=== PATIENT | female | born 1945 | race Caucasian/White ===

== ENCOUNTER → 2017-01-17 | Outpatient (CLI) | payer BC ==
[~2017-01-17] MED LIST: ACET-1256 PO; B-COTAB18 PO; BOSW1TAB3 PO; CHOL2000 PO; FOLI1TAB7 PO; HOME1MIS2 SL; IBUP-103 PO; INDO-22 PO; LEVO500T78 PO; PHEN-582 PO; PHENPAK2 PO; PRAMCRE2 TOP; SENNTAB23 PO; THYROID SUPPORT PO; TURM1CAP4 PO; [UNRECOGNIZED DRUG - OTHER] PO
== END | disposition home or self-care (01) ==
LOC: C.LAB1850 10:34
PROVIDERS: ATTEND Registered Nurse
DX: R10.9 Unspecified abdominal pain (principal)

== ENCOUNTER 2017-02-05 15:24 | Emergency (ER) | payer BC ==
[~2017-02-05] VITALS: Ht 165.1 cm; Wt 74.3 kg
[2017-02-05 15:37] VITALS: TEMP 36.5; Ht 165.1 cm; Wt 74.3 kg
[2017-02-05 16:47] VITALS: O2SAT 97
--- NOTE | 2017-02-05 17:24 | DIAGNOSTIC IMAGING REPORT ---
CT HEAD WITHOUT CONTRAST (CT) CLINICAL HISTORY: Headache status post head trauma COMPARISON STUDY: No previous studies for comparison. TECHNIQUE: Axial CT of the brain is performed from the vertex to the skull base. IV contrast was not administered for this examination. CT DOSE: 537.48 mGy.cm FINDINGS: No intra or extra-axial mass lesions are visualized. There is no CT evidence of acute cortical infarction. There is no evidence of midline shift. There is no acute hemorrhage. No calvarial fractures are visualized. There are patchy white matter hypodensities likely on a small vessel basis. There is no evidence of pathologic ventricular dilatation. There is no evidence of acute sinusitis IMPRESSION: No acute intracranial findings Electronically signed by: Alex Alegre M.D. 02/05/2017 5:23 PM Dictated Date/Time: 02/05/2017 5:22 PM
--- NOTE | 2017-02-05 17:42 | EMERGENCY ROOM VISIT NOTE ---
History First contact with patient: 16:47 Chief Complaint: NEURO SYMPTOMS Stated Complaint: HAD BUMP ON HEAD, SPEECH,MEMORY HAS GOTTEN WORSE Nursing Triage Summary: Patient states she is to have a colonoscopy and they want her checked before she has it done because 3 weeks ago she was pushing a treadmill up to clean under and it came back down knocking her into the wall. Pt states she hit her head, denies LOC. Had some dizziness, nausea and slurred speech off an on for a couple days after and now feels that maybe her memory is not as good as it was prior to hitting her head. Pt denies head pain today. Chronic sciatica right side. History of Present Illness The patient is a 71 year old female who presents to the Emergency Room with Hx of Head injury 3 weeks ago. Patient reports that 3 weeks ago she was lifting a treadmill at her home for cleaning purposes. Due to the heaviness of the equipment, her arms gave way, the she was knocked in to the wall hitting the side of her head. She does no recall which side. She denies other injuries. She denied any preceding dizziness or lightheadedness. She denies LOC following injury, visual changes. She does report a period of nausea following incident without vomiting in addition to frontal Headaches daily for week after the incident and occasional slurred speech and poor memory recall. Symptoms have generally improved, however, she does report headache 1/wk. She currently denies numbness, weakness, tingling, CP, Palpitation, SOB. The main reason patient has come into hospital is because she is being scheduled for a Colonoscopy and was told prior to receiving anesthesia, she should be evaluated. Review of Systems Pt denies headache, change in vision, fevers, chest pain, shortness of breath, nausea, vomiting, diarrhea, pain with urination, and melena. Social History Smoking Status: Former Smoker Current/Historical Medications Scheduled B-Complex Vitamins (Vitamin B Complex), 1 TAB PO QAM Ouchykjfa-Hudfzusqgwl-Jxlmibq (Glucosamine Complex), 1 TAB PO QAM Cholecalciferol (Vitamin D3), 1 CAP PO QAM Ntjimcyrocdhn-Tm-Jl W/ Apap (Tylenol Cold & Flu Severe), 2 TAB PO DAILY Turmeric (Curcuma Longa) (Turmeric), 1 CAP PO QAM [Thyroid Support], 1 TAB PO QAM Scheduled PRN Acetaminophen (Tylenol), 1,000 MG PO Q8H PRN for Pain Homeopathic Products (Oscillococcinum), 1 DOSE SL DAILY PRN for COLD SYMPTOMS Ibuprofen Tab (Advil), 400-600 MG PO Q6H PRN for Pain Vzivtvkwc-Ccfdkkoxwxgjo-Nmncux (Preparation H), 1 DOSE TOP BID PRN for HEMORRHOIDS Allergies Coded Allergies: No Known Allergies (Unverified , 02/05/17) Physical Exam Vital Signs Date Time Temp Pulse Resp B/P Pulse Ox O2 Delivery O2 Flow Rate FiO2 02/05/17 16:47 97 Room Air 02/05/17 16:45 58 19 132/56 95 Room Air 02/05/17 15:37 36.5 63 16 147/66 99 Room Air Physical Exam GENERAL: alert, well appearing, well nourished, no distress, non-toxic EYE EXAM: normal conjunctiva, PERRL and EOM's grossly intact OROPHARYNX: no exudate, no erythema, lips, buccal mucosa, and tongue normal and mucous membranes are moist NECK: supple, no nuchal rigidity, no adenopathy, non-tender LUNGS: Clear to auscultation. Normal chest wall mechanics HEART: no murmurs, S1 normal and S2 normal ABDOMEN: abdomen soft, non-tender, normo-active bowel sounds, no masses, no rebound or guarding. SKIN: no rashes and no bruising UPPER EXTREMITIES: upper extremities are grossly normal. LOWER EXTREMITIES: No pitting edema. NEURO EXAM: Normal sensorium, cranial nerves II-XII intact, normal speech, no weakness of arms, no weakness of legs. No drift. Gross sensation intact. Medical Decision & Procedures ER Provider Diagnostic Interpretation: CT HEAD WITHOUT CONTRAST (CT) CLINICAL HISTORY: Headache status post head trauma COMPARISON STUDY: No previous studies for comparison. TECHNIQUE: Axial CT of the brain is performed from the vertex to the skull base. IV contrast was not administered for this examination. CT DOSE: 537.48 mGy.cm FINDINGS: No intra or extra-axial mass lesions are visualized. There is no CT evidence of acute cortical infarction. There is no evidence of midline shift. There is no acute hemorrhage. No calvarial fractures are visualized. There are patchy white matter hypodensities likely on a small vessel basis. There is no evidence of pathologic ventricular dilatation. There is no evidence of acute sinusitis IMPRESSION: No acute intracranial findings Medical Decision 71 yo F w/ hx of head injury 3 wks ago with subsequent frontal headaches daily x 1 week, now headache 1/wk, occasionally poor memory recall, slurred speech requesting evaluation prior to upcoming colonoscopy. VSS, No focal neurological signs. Differential Diagnosis includes but is not limited to headache, tension headache , cluster headache, migraine, subarachnoid hemorrhage, meningitis, mass, central venous thrombus, concussion, trauma and epidural/subdural hemorrhage. -CT Head without contrast: no acute intracranial findings. -She was discharged with follow up to PCP Impression Primary Impression: History of head injury Additional Impression: Head ache Departure Information Dispostion Home / Self-Care Condition GOOD Referrals Pro,Chau Izquierdo M.D. (PCP) Patient Instructions My [facility] Resident Tracking Resident Involvement: Resident Care Provided Care Provided: Adult ED Problem Qualifiers Additional Impression: Head ache Headache type: unspecified Headache chronicity pattern: episodic headache Intractability: not intractable Qualified Codes: R51 - Headache
--- NOTE | 2017-02-05 17:43 | EMERGENCY ROOM VISIT NOTE ---
History Report prepared by Jaydenibe: Twyla Mixon Under the Supervision of: Dr. Thanh Hernandez D.O. First contact with patient: 16:47 Chief Complaint: NEURO SYMPTOMS Stated Complaint: HAD BUMP ON HEAD, SPEECH,MEMORY HAS GOTTEN WORSE Nursing Triage Summary: Patient states she is to have a colonoscopy and they want her checked before she has it done because 3 weeks ago she was pushing a treadmill up to clean under and it came back down knocking her into the wall. Pt states she hit her head, denies LOC. Had some dizziness, nausea and slurred speech off an on for a couple days after and now feels that maybe her memory is not as good as it was prior to hitting her head. Pt denies head pain today. Chronic sciatica right side. History of Present Illness The patient is a 71 year old female who presents to the Emergency Room with complaints of possible neurologic symptoms. She reports she experienced a head injury that occurred approximately 3 weeks ago. She states she was pushing a treadmill up in order to clean under it, when it came back down and hit her in the head. She denies any LOC. She reports she experienced some dizziness, nausea and slurred speech off and on for a couple of days after the incident. She now feels that her memory may not be as good as it was before hitting her head. The patient notes she is scheduled to undergo a colonoscopy soon, and was told to get "checked out" before the scope. She denies any headache currently here in the ED. 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 A total of 10 systems reviewed and were otherwise negative. Past Medical & Surgical Medical Problems: (1) Sciatica Social History Smoking Status: Former Smoker Alcohol Use: occasionally Drug Use: none Marital Status: Housing Status: lives with family Occupation Status: retired Current/Historical Medications Scheduled B-Complex Vitamins (Vitamin B Complex), 1 TAB PO QAM Teorismky-Ohczmqhuikb-Clusgkk (Glucosamine Complex), 1 TAB PO QAM Cholecalciferol (Vitamin D3), 1 CAP PO QAM Osryoxlnampia-Bt-Qb W/ Apap (Tylenol Cold & Flu Severe), 2 TAB PO DAILY Turmeric (Curcuma Longa) (Turmeric), 1 CAP PO QAM [Thyroid Support], 1 TAB PO QAM Scheduled PRN Acetaminophen (Tylenol), 1,000 MG PO Q8H PRN for Pain Homeopathic Products (Oscillococcinum), 1 DOSE SL DAILY PRN for COLD SYMPTOMS Ibuprofen Tab (Advil), 400-600 MG PO Q6H PRN for Pain Zhdirmzth-Sqishqpeomwff-Zcagsq (Preparation H), 1 DOSE TOP BID PRN for HEMORRHOIDS Allergies Coded Allergies: No Known Allergies (Unverified , 02/05/17) Physical Exam Vital Signs Date Time Temp Pulse Resp B/P Pulse Ox O2 Delivery O2 Flow Rate FiO2 02/05/17 16:47 97 Room Air 02/05/17 16:45 58 19 132/56 95 Room Air 02/05/17 16:45 57 02/05/17 15:37 36.5 63 16 147/66 99 Room Air Physical Exam CONSTITUTIONAL/VITAL SIGNS: Reviewed / noted above. GENERAL: Non-toxic in appearance. INTEGUMENTARY: Warm, dry, and [place]. HEAD: Normocephalic. EYES: without scleral icterus or trauma. ENT/OROPHARYNX: clear and moist. LYMPHADENOPATHY/NECK: Is supple without lymphadenopathy or meningismus. RESPIRATORY: Lungs clear and equal. CARDIOVASCULAR: Regular rate and rhythm. GI/ABDOMEN: Soft and nontender. No organomegaly or pulsatile mass. No rebound or guarding. Normal bowel sounds. EXTREMITIES: Warm and well perfused. BACK: No CVA tenderness. NEUROLOGICAL: Intact without focal deficits. PSYCHIATRIC: normal affect. MUSCULOSKELETAL: Normally developed with good muscle tone. TRIAGE NURSING DOCUMENTATION REVIEWED. Medical Decision & Procedures ER Provider Diagnostic Interpretation: This CT scan was reviewed and interpreted by the radiologist and reviewed by myself. CT HEAD WITHOUT CONTRAST (CT) IMPRESSION: No acute intracranial findings Electronically signed by: Alex Alegre M.D. 02/05/2017 5:23 PM ED Course 1715: Previous medical records were reviewed. The patient was evaluated in room C8. A complete history and physical examination was performed. 1745: I reevaluated the patient. She is feeling well. I discussed her results and discharge instructions and she verbalized complete understanding and agreement. Medical Decision Differential includes acute coronary syndrome, myocardial infarction, CVA, TIA, anemia, infection, pneumonia, UTI, pyelonephritis, poor nutrition, dehydration, electrolyte disturbance,hypoglycemia. This is a 71-year-old female who was seen with the resident. The patient presents with concerns about a head injury after bumping her head several weeks ago. She mainly was concerned about intracranial bleeding. She denies any other significant symptoms. She has not had nausea vomiting. Denies any weakness in arm or leg. A CT scan of the brain was negative for intracranial bleeding. She was told the results of the test. The patient was felt to be stable for outpatient follow-up and discharge. Impression Primary Impression: History of head injury Additional Impression: Head injury Scribe Attestation The scribe's documentation has been prepared under my direction and personally reviewed by me in its entirety. I confirm that the note above accurately reflects all work, treatment, procedures, and medical decision making performed by me. Departure Information Dispostion Home / Self-Care Referrals Chau Rosen M.D. (PCP) Patient Instructions My [facility] Problem Qualifiers
[2017-02-05 17:53] VITALS: BP 130/62; PULSE 56; O2SAT 98
== END 2017-02-05 17:55 | disposition home or self-care (01) ==
LOC: C.EDB 15:25 → C.EDC 17:55
DX: S09.90XA Unspecified injury of head, initial encounter (principal); W22.8XXA Striking against or struck by other objects, initial encounter; Z87.891 Personal history of nicotine dependence; Z79.899 Other long term (current) drug therapy

== ENCOUNTER → 2017-02-19 | Day surgery (SDC) | payer BC ==
[2017-02-05 13:58] VITALS: Ht 165.1 cm; Wt 72.7 kg
[~2017-02-19] VITALS: Ht 165.1 cm; Wt 72.7 kg
[~2017-02-19] MED LIST changes: -FOLI1TAB7 PO; -INDO-22 PO; -LEVO500T78 PO; +LIDOCAINE HCL 2% 2 ML VIAL (20MG/ML) ONE; -PHENPAK2 PO; +PROPOFOL IV EMULSION 10 MG/ML 20 ML VIAL IV ONE; -SENNTAB23 PO; +SODIUM CHLORIDE 0.9% 500ML 500 ML IV ONE; -[UNRECOGNIZED DRUG - OTHER] PO
--- NOTE | 2017-02-19 15:41 | Endo History and Physical ---
History & Physical Date of Service: Feb 19, 2017. Chief Complaint: rectal bleeding Referring Physician: Dr. Chau Rosen History of Present Illness 71 yo female who presents for colonoscopy secondary to rectal bleeding. Past Surgical History Hx Cardiac Surgery: No Hx Internal Defibrillator: No Hx Pacemaker: No Hx Abdominal Surgery: Yes (APPY, LAP VILMA) Hx of Implantable Prosthesis: No Hx Post-Op Nausea and Vomiting: No Hx Cancer Surgery: No Hx Thoracic Surgery: No Hx Orthopedic: Yes (LT/RT CHARMAINE) Hx Urinary Tract Surgery: No Family History Polyp Social History Smoking Status: Former Smoker Hx Substance Use: No Hx Alcohol Use: No Allergies Coded Allergies: No Known Allergies (Verified , 02/19/17) Current Medications Reported Home Medications Medications Dose Route/Sig Max Daily Dose Days Date Category Preparation H (Hrfpfbnvv-Guyjmzfejoehj-Ffrgth) 1 Cre Cre 1 Dose TOP BID PRN 02/05/17 Reported Oscillococcinum (Homeopathic Products) 1 Mis Mis 1 Dose SL DAILY PRN 02/05/17 Reported Tylenol Cold & Flu Severe (Klrrnwypazwho-Lt-Pn W/ Apap) 1 Tab Tab 2 Tab PO DAILY 02/05/17 Reported [Thyroid Support] 1 Tab PO QAM 02/05/17 Reported Glucosamine Complex (Xnkeroqhy-Ifkcjbajrrb-Eaaxcci) 1 Tab Tab 1 Tab PO QAM 02/05/17 Reported Tylenol (Acetaminophen) 500 Mg Tab 1,000 Mg PO Q8H PRN 02/05/17 Reported Advil (Ibuprofen) 200 Mg Tab 400-600 Mg PO Q6H PRN 02/05/17 Reported Vitamin D3 (Cholecalciferol) 2,000 Unit Cap 1 Cap PO QAM 02/05/17 Reported Vitamin B Complex (B-Complex Vitamins) 1 Tab Tab 1 Tab PO QAM 02/05/17 Reported Turmeric (Turmeric (Curcuma Longa)) 500 Mg Cap 1 Cap PO QAM 03/28/16 Reported Vital Signs Weight (Kilograms): 72.73 Height (Feet): 5 Height (Inches): 5 Date Time Temp Pulse Resp B/P Pulse Ox O2 Delivery O2 Flow Rate FiO2 02/19/17 15:13 36.6 68 20 137/66 98 Room Air Physical Exam General Appearance: WD/WN, no apparent distress Respiratory/Chest: Auscultation: breath sounds normal Cardiovascular: Heart Auscultation: RRR Abdomen: Bowel Sounds: normal Inspection & Palpation: soft, non-distended, no tenderness, guarding & rebound Assessment and Plan Assessment: 71 yo female who presents for colonoscopy secondary to rectal bleeding. Plan: Proceed with colonoscopy.
--- NOTE | 2017-02-19 16:00 | Discharge Instructions ---
Endoscopy Patient Instructions Date / Procedure(s) Performed Feb 19, 2017. Colonoscopy Allergy Information Coded Allergies: No Known Allergies (Verified , 02/19/17) Discharge Date / Findings Feb 19, 2017. Internal hemorrhoids Medication Instructions Stopped Medication(s): stopped all supplements on or Sunday OK to resume all medications today as prescribed Reported Home Medications Medications Dose Route/Sig Max Daily Dose Days Date Category Preparation H (Xxxuwsthv-Tmkaqwtsnubis-Vtchcq) 1 Cre Cre 1 Dose TOP BID PRN 02/05/17 Reported Oscillococcinum (Homeopathic Products) 1 Mis Mis 1 Dose SL DAILY PRN 02/05/17 Reported Tylenol Cold & Flu Severe (Knqolwiwxozok-Zx-Mt W/ Apap) 1 Tab Tab 2 Tab PO DAILY 02/05/17 Reported [Thyroid Support] 1 Tab PO QAM 02/05/17 Reported Glucosamine Complex (Naaqadlvc-Evkzkvpqspt-Ynakoyn) 1 Tab Tab 1 Tab PO QAM 02/05/17 Reported Tylenol (Acetaminophen) 500 Mg Tab 1,000 Mg PO Q8H PRN 02/05/17 Reported Advil (Ibuprofen) 200 Mg Tab 400-600 Mg PO Q6H PRN 02/05/17 Reported Vitamin D3 (Cholecalciferol) 2,000 Unit Cap 1 Cap PO QAM 02/05/17 Reported Vitamin B Complex (B-Complex Vitamins) 1 Tab Tab 1 Tab PO QAM 02/05/17 Reported Turmeric (Turmeric (Curcuma Longa)) 500 Mg Cap 1 Cap PO QAM 03/28/16 Reported Provider Instructions Activity Restrictions - No exercising or heavy lifting for 24 hours. - Do not drink alcohol the day of the procedure. - Do not drive a car or operate machinery until the day after the procedure. - Do not make any important decisions or sign important papers in 24 hours after the procedure. Following Day: - Return to full activity which may include returning to work/school. Diet Start your diet with liquids and light foods (jello, soup, juice, toast). Then eat your usual diet if not nauseated. Treatment For Common After Affects For mild abdominal pain, bloating, or excessive gas: - Rest - Eat lightly - Lie on right side Follow-Up Information Follow-up with Dr. Chau Rosen as scheduled Anesthesia Information What You Should Know You have had a procedure that required some medicine to reduce anxiety and discomfort. This treatment is called moderate sedation. After receiving the treatment, you may be sleepy, but you will be able to breathe on your own. The effects of the treatment may last for several hours. Follow these instructions along with Activity/Diet recommendations noted above: * Do NOT do anything where dizziness or clumsiness would be dangerous. * Rest quietly at home today, then you can be up and about tomorrow. * Have a responsible person stay with you the rest of today. * You may have had an I.V. today. If so, you may take the dressing off later today. Recommendations Call your doctor if: * Trouble breathing * Continuous vomiting for more than 24 hours * Temperature above 101 degrees * Severe abdominal pain or bloating * Pain not relieved by pain medicine ordered * There is increased drainage or redness from any incision * A large amount of rectal bleeding greater than 2-3 tablespoons. (If you had a polyp/s removed or have hemorrhoids, a small amount of blood - from the rectum is to be expected.) * You have any unanswered questions or concerns. IN THE EVENT OF A SERIOUS EMERGENCY, GO TO THE NEAREST EMERGENCY ROOM Your discharge instructions were prepared by provider Bhavesh Quinteros. Patient Instructions Signature Page [employer] Patient (or Guardian) Signature/Date: I have read and understand the instructions given to me by my caregivers. Caregiver/RN/Doctor Signature/Date: The above-named patient and/or guardian has received patient instructions on this date. + Original Patient Signature Page (only) stays with chart. Please make copy for patient.
--- NOTE | 2017-02-19 16:04 | GI REPORT ---
Procedure Date: 02/19/2017 3:04 PM Procedure: Colonoscopy Indications: Rectal bleeding Medicines: Monitored Anesthesia Care Complications: No immediate complications. Estimated Blood Loss: Estimated blood loss: none. Procedure: Pre-Anesthesia Assessment: - Prior to the procedure, a History and Physical was performed, and patient medications and allergies were reviewed. The patient's tolerance of previous anesthesia was also reviewed. The risks and benefits of the procedure and the sedation options and risks were discussed with the patient. All questions were answered, and informed consent was obtained. Prior Anticoagulants: The patient has taken no previous anticoagulant or antiplatelet agents. ASA Grade Assessment: I - A normal, healthy patient. After reviewing the risks and benefits, the patient was deemed in satisfactory condition to undergo the procedure. After I obtained informed consent, the scope was passed under direct vision. Throughout the procedure, the patient's blood pressure, pulse, and oxygen saturations were monitored continuously. The Scope was introduced through the anus and advanced to the terminal ileum. The colonoscopy was performed without difficulty. The patient tolerated the procedure well. The quality of the bowel preparation was good. The terminal ileum, ileocecal valve, appendiceal orifice, and rectum were photographed. Findings: Non-bleeding internal hemorrhoids were found during retroflexion. The hemorrhoids were small. Impression: - Non-bleeding internal hemorrhoids. - No specimens collected. Recommendation: - Resume previous diet. - Continue present medications. - No repeat colonoscopy due to age and the absence of advanced adenomas. - Return to primary care physician as previously scheduled. Bhavesh Quinteros, DO 02/19/2017 4:03:54 PM This report has been signed electronically. Note Initiated On: 02/19/2017 3:04 PM I attest to the content of the Intraoperative Record and orders documented therein, exceptions below
[2017-02-19 16:33] VITALS: BP 156/75; PULSE 63; O2SAT 100
--- NOTE | 2017-02-19 16:35 | Anesthesiology Progress Note ---
Anesthesia Post Op Note Date & Time Feb 19, 2017 at 16:36 Vital Signs Pain Intensity: 0 Vital Signs Past 12 Hours Date Time Temp Pulse Resp B/P Pulse Ox O2 Delivery O2 Flow Rate FiO2 02/19/17 16:33 63 16 156/75 100 Room Air 02/19/17 16:18 66 16 135/69 98 Room Air 02/19/17 16:03 72 16 117/55 98 Room Air 02/19/17 15:13 36.6 68 20 137/66 98 Room Air Notes Mental Status: alert / awake / arousable, participated in evaluation Pt Amnestic to Procedure: Yes Nausea / Vomiting: adequately controlled Pain: adequately controlled Airway Patency, RR, SpO2: stable & adequate BP & HR: stable & adequate Hydration State: stable & adequate Anesthetic Complications: no major complications apparent
== END | disposition home or self-care (01) ==
LOC: C.GI 14:51
PROVIDERS: ATTEND Internal Medicine
DX: K62.5 Hemorrhage of anus and rectum (principal); K64.8 Other hemorrhoids; Z87.891 Personal history of nicotine dependence

== ENCOUNTER → 2017-04-20 | Outpatient (CLI) | payer BC ==
[~2017-04-20] MED LIST changes: -LIDOCAINE HCL 2% 2 ML VIAL (20MG/ML) ONE; -PROPOFOL IV EMULSION 10 MG/ML 20 ML VIAL IV ONE; -SODIUM CHLORIDE 0.9% 500ML 500 ML IV ONE
== END | disposition home or self-care (01) ==
LOC: C.PAPS 13:43
PROVIDERS: ATTEND Obstetrics & Gynecology
DX: Z12.4 Encounter for screening for malignant neoplasm of cervix (principal)

== ENCOUNTER → 2017-04-20 | Outpatient (CLI) | payer BC ==
[2017-04-20 13:31] LABS: URINE APPEARANCE CLEAR (CLEAR); URINE BILIRUBIN NEG (NEG); URINE COLOR YELLOW; URINE NITRITE NEG (NEG); URINE PH 7.5 (4.5-7.5); URINE SPECIFIC GRAVITY 1.008 (1.000-1.030); UROBILINOGEN NEG (NEG)
[2017-04-20 13:42] LABS: MANUAL MICROSCOPIC REQUIRED? NO; REVIEW REQ? NO
== END | disposition home or self-care (01) ==
LOC: C.LABSPEC 14:01
PROVIDERS: ATTEND Obstetrics & Gynecology
DX: Z12.4 Encounter for screening for malignant neoplasm of cervix (principal); R30.0 Dysuria; N89.8 Other specified noninflammatory disorders of vagina

== ENCOUNTER → 2017-10-01 | Outpatient (CLI) | payer BC ==
--- NOTE | 2017-10-01 10:41 | DIAGNOSTIC IMAGING REPORT ---
SOFT TISS HEAD/NECK-THYROID CLINICAL HISTORY: 71 years-old Female presenting with E04.1 Solitary thyroid nodulethyroid u/s. TECHNIQUE: Real-time grayscale and color Doppler ultrasound imaging of the thyroid and base of the neck was performed. COMPARISON: 10/16/2016. FINDINGS: Right lobe: Heterogeneous echotexture secondary to the presence of multiple nodules. The right lobe of the thyroid measures 1.5 x 5.0 x 1.6 cm. The largest nodule measures 1.5 x 1.2 x 1.3 cm and is well-defined, isoechoic, and without calcifications, previously 1.5 x 1.0 x 1.2 cm (low suspicion pattern). No parenchymal hyperemia. Left lobe: Heterogeneous echotexture secondary to the presence of multiple nodules. The left lobe of the thyroid measures 4.6 x 1.6 x 1.3 cm. The largest nodule in the interpolar region measures 1.8 x 1.4 x 1.3 cm, is well-defined and heterogeneously isoechoic, previously 1.6 x 1.3 x 1.3 cm (low suspicion pattern). The largest nodule in the lower pole measures 1.8 x 0.9 x 1.1 cm with similar characteristics, previously 1.8 x 1.0 x 1.2 cm (low suspicion pattern). No parenchymal hyperemia. Isthmus: The isthmus measures 5 mm in thickness. Well-defined heterogeneously hyperechoic 1.3 cm nodule, previously 1.4 x 0.8 x 1.3 cm (low suspicion pattern). IMPRESSION: Overall stable appearance of the multinodular thyroid. Based on size, several of these nodules qualify for fine-needle aspiration based on the [place] [employer] criteria, however, their stability and multiplicity suggests benignity. Electronically signed by: Maikel Arango M.D. 10/01/2017 10:40 AM Dictated Date/Time: 10/01/2017 10:35 AM
--- NOTE | 2017-10-01 10:43 | DIAGNOSTIC IMAGING REPORT ---
ABDOMINAL ULTRASOUND COMPLETE HISTORY: Generalized abdominal pain.. COMPARISON: Abdomen and pelvis CT 03/22/2016. FINDINGS: Pancreas: The pancreatic tail is obscured by overlying bowel gas. The remaining portions of the pancreas are within normal limits. Liver: Unremarkable. Gallbladder: The gallbladder is surgically absent. CBD: 4 mm. Kidneys: No hydronephrosis. A 1.5 cm left renal cyst. Spleen: Normal in size. Aorta: Normal in caliber. IVC: Patent. IMPRESSION: 1. No significant abnormality within the abdomen. 2. Cholecystectomy. 3. A 1.5 cm left renal cyst. Electronically signed by: Jesus Suarez M.D. 10/01/2017 10:41 AM Dictated Date/Time: 10/01/2017 10:35 AM
== END | disposition home or self-care (01) ==
LOC: C.ULTR 09:02
PROVIDERS: ATTEND Internal Medicine
DX: E04.2 Nontoxic multinodular goiter (principal); R10.9 Unspecified abdominal pain; N28.1 Cyst of kidney, acquired

== ENCOUNTER → 2017-10-19 | Outpatient (CLI) | payer BC ==
[2017-10-19 10:02] LABS: THYROID STIMULATING HORMONE 1.35 uIu/ml (0.300-4.500)
[2017-10-20 14:38] LABS: MICROSOMAL AB <1 IU/ML (<9)
== END | disposition home or self-care (01) ==
LOC: C.LAB1850 08:39
PROVIDERS: ATTEND Internal Medicine Endocrinology, Diabetes & Metabolism
DX: E04.2 Nontoxic multinodular goiter (principal)

== ENCOUNTER 2018-06-25 13:42 | Emergency (ER) | payer BC ==
[~2018-06-25] VITALS: Ht 165.1 cm; Wt 74.6 kg
[2018-06-25 13:45] VITALS: TEMP 36.7
[2018-06-25] MEDS ORDERED: SODIUM CHLORIDE 0.9% 1000ML 1,000 ML IV STA (14:09)
[2018-06-25 14:15] VITALS: O2SAT 97; Ht 165.1 cm; Wt 74.6 kg
[2018-06-25 14:30] LABS: BASO % 0.1 %; BASO ABS # 0.01 K/uL (0-0.2); EOS % 1.4 %; HEMATOCRIT 42.3 % (37-47); HEMOGLOBIN 14.7 g/dL (12.0-16.0); IG# 0.02 K/uL (0.00-0.02); LYMPH ABS # 2.12 K/uL (1.2-3.4); MEAN CELL VOLUME 90.4 fL (80-100); MEAN CORPUSCULAR HEMOGLOBIN 31.4 pg (25-34); MEAN CORPUSCULAR HGB CONC 34.8 g/dl (32-36); MEAN PLATELET VOLUME 9.5 fL (7.4-10.4); MONO % 5.3 %; MONO ABS # 0.39 K/uL (0.11-0.59); NEUT % 63.9 %; NEUT ABS # 4.67 K/uL (1.4-6.5); PLATELET COUNT 225 K/uL (130-400); RED CELL DISTRIBUTION WIDTH CV 12.2 % (11.5-14.5); RED CELL DISTRIBUTION WIDTH SD 40.2 fL (36.4-46.3); WHITE BLOOD COUNT 7.31 K/uL (4.8-10.8)
--- NOTE | 2018-06-25 14:33 | DIAGNOSTIC IMAGING REPORT ---
SINGLE VIEW CHEST CLINICAL HISTORY: Generalized weakness. FINDINGS: An AP, portable, upright chest radiograph is compared to study dated 08/23/2012. The cardiomediastinal silhouette is unremarkable. The lungs and pleural spaces are clear. No pneumothorax is seen. The skeletal structures are osteopenic. The bony thorax is grossly intact. IMPRESSION: No active disease in the chest. Electronically signed by: Tae Caldera M.D. 06/25/2018 2:31 PM Dictated Date/Time: 06/25/2018 2:31 PM
[2018-06-25 14:59] LABS: ALBUMIN 4.1 gm/dl (3.4-5.0); ALKALINE PHOSPHATASE 87 U/L (45-117); ALT/SGPT 22 U/L (12-78); AST/SGOT 19 U/L (15-37); BLOOD UREA NITROGEN 17 mg/dl (7-18); CALCIUM 8.8 mg/dl (8.5-10.1); CARBON DIOXIDE 25 mmol/L (21-32); CREATININE 0.83 mg/dl (0.60-1.20); GLUCOSE 81 mg/dl (70-99); POTASSIUM 3.8 mmol/L (3.5-5.1); SODIUM 137 mmol/L (136-145)
[2018-06-25] MEDS ORDERED: OPTIRAY 320 IV PRN (15:00)
--- NOTE | 2018-06-25 16:00 | DIAGNOSTIC IMAGING REPORT ---
(CHEST FOR PE) ANGIO WITH CLINICAL HISTORY: 72 years-old Female presenting with ^sob, + dimer, recent [place] travel, chest pain, clinical concern for pulmonary bolus. TECHNIQUE: Multidetector CT angiography of the chest was performed after administration of intravenous contrast. 3-D volumetric and/or maximum intensity projection (MIP) images were subsequently reconstructed for review. IV contrast: 93 mL of Optiray 320. A dose lowering technique was used consistent with the principles of ALARA (as low as reasonably achievable). COMPARISON: Chest x-ray performed earlier today. CT DOSE (mGy.cm): The estimated cumulative dose is 539.26 mGycm. FINDINGS: Campus Receptionist topogram: Unremarkable. Pulmonary vasculature: The study is adequate for assessment of the pulmonary vascular tree. No filling defect within the pulmonary arteries to suggest embolus. Main pulmonary artery is not enlarged. No flattening of the interventricular septum. No intracardiac filling defect. Reflux of contrast into the intrahepatic IVC. Remaining chest: On soft tissue windows, subcentimeter hypodense nodule noted in the inferior aspect of the isthmus of the thyroid (series 4 image 233). No axillary, supraclavicular, hilar, or mediastinal lymphadenopathy. Normal aorta. Normal heart size. No pericardial or pleural effusion. Upper abdomen normal. On lung windows, minimal dependent changes likely atelectasis. No other focal nodule or infiltrate. Limited interlobular septal thickening. Airways patent. On bone windows, degenerative changes of the spine. IMPRESSION: 1. No evidence of pulmonary embolus. 2. Mild interlobular septal thickening may suggest an element of congestive change. Electronically signed by: Maikel Arango M.D. 06/25/2018 3:59 PM Dictated Date/Time: 06/25/2018 3:50 PM
--- NOTE | 2018-06-25 16:34 | EMERGENCY ROOM VISIT NOTE ---
History Report prepared by Justine: Sari Baker Under the Supervision of: Dr. Lobo Hills M.D. First contact with patient: 13:51 Chief Complaint: SHORTNESS OF BREATH Stated Complaint: SOB,WEAKNESS,JAW PAIN History of Present Illness The patient is a 72 year old female who presents to the Emergency Room with complaints of weakness over the last couple of months. She states that she has been tilting to the right when she walks. The patient reports having jaw pain and headaches but states that she currently does not have a headache. The patient reports that her vision has been okay. She reports having worsening shortness of breath and states that she has had a dry cough. She reports having right-sided back pain but denies having abdominal pain. The patient reports having sharp pains in her bilateral hands that started over the last 4-5 days. She denies having new swelling in her legs. The patient states that she returned from [place] 2 days ago and states that she was there for 3 weeks. The patient reports that she has been under more stress over the last 2 months but that she has been working through it. The patient reports that she had issues in the past with hypothyroidism but states that she no longer takes medications for it. The patient reports that she recently gained a little weight. Source of History: patient Onset: over the last couple of months Position: other (generalized) Quality: other (weakness) Associated Symptoms: + headache, + cough, + SOB, + back pain, No abdominal pain Note: denies: swelling in legs Review of Systems See HPI for pertinent positives and negatives. A total of ten systems were reviewed and were otherwise negative. Past Medical & Surgical Medical Problems: (1) Sciatica Family History Patient reports no known family medical history. Social History Smoking Status: Former Smoker Alcohol Use: occasionally Drug Use: none Marital Status: Housing Status: lives with family Occupation Status: retired Current/Historical Medications Scheduled B-Complex Vitamins (Vitamin B Complex), 1 TAB PO QAM Dtkagmpai-Bxkjwblxpxa-Fwrltam (Glucosamine Complex), 1 TAB PO QAM Cholecalciferol (Vitamin D3), 1 CAP PO QAM Ezuumomiaynsw-Ms-Ut W/ Apap (Tylenol Cold & Flu Severe), 2 TAB PO DAILY Turmeric (Curcuma Longa) (Turmeric), 1 CAP PO QAM [Thyroid Support], 1 TAB PO QAM Scheduled PRN Acetaminophen (Tylenol), 1,000 MG PO Q8H PRN for Pain Homeopathic Products (Oscillococcinum), 1 DOSE SL DAILY PRN for COLD SYMPTOMS Ibuprofen Tab (Advil), 400-600 MG PO Q6H PRN for Pain Tbtypfgjq-Ibhbvaceprjki-Entocp (Preparation H), 1 DOSE TOP BID PRN for HEMORRHOIDS Allergies Coded Allergies: No Known Allergies (Verified , 06/25/18) Physical Exam Vital Signs Date Time Temp Pulse Resp B/P (MAP) Pulse Ox O2 Delivery O2 Flow Rate FiO2 06/25/18 16:54 65 20 160/69 98 06/25/18 15:45 65 172/76 97 Room Air 68 180/68 69 179/70 06/25/18 14:15 97 Room Air 06/25/18 14:15 97 Room Air 06/25/18 14:15 97 Room Air 06/25/18 13:45 36.7 68 20 132/76 97 Room Air Physical Exam GENERAL: Awake, alert, well-appearing, in no distress HENT: Normocephalic, atraumatic. Oropharynx unremarkable. No pharyngeal erythema or exudate. Intact dentition. EYES: Normal conjunctiva. Sclera non-icteric. NECK: Supple. No nuchal rigidity. No cervical lymphadenopathy. RESPIRATORY: Clear to auscultation. No wheezes. Normal respiratory effort. CARDIAC: Normal rate. Normal rhythm. Extremities warm and well perfused. GI: Soft, non-distended. No tenderness to palpation. No rebound or guarding. RECTAL: Deferred. MUSCULOSKELETAL: Atraumatic. Chest examination reveals no tenderness. Mild left palmar tenderness without fluctuance or erythema LOWER EXTREMITIES: Calves are equal size bilaterally and non-tender. No edema NEURO: Normal sensorium. No sensory or motor deficits noted. No facial droop. Ambulatory. No aphasia SKIN: Warm and dry. No rash or jaundice noted. Medical Decision & Procedures ER Provider Diagnostic Interpretation: Radiology results as stated below per my review and radiologist interpretation: SINGLE VIEW CHEST CLINICAL HISTORY: Generalized weakness. FINDINGS: An AP, portable, upright chest radiograph is compared to study dated 08/23/2012. The cardiomediastinal silhouette is unremarkable. The lungs and pleural spaces are clear. No pneumothorax is seen. The skeletal structures are osteopenic. The bony thorax is grossly intact. IMPRESSION: No active disease in the chest. Electronically signed by: Tae Caldera M.D. 06/25/2018 2:31 PM Dictated Date/Time: 06/25/2018 2:31 PM (CHEST FOR PE) ANGIO WITH CLINICAL HISTORY: 72 years-old Female presenting with ^sob, + dimer, recent [place] travel, chest pain, clinical concern for pulmonary bolus. TECHNIQUE: Multidetector CT angiography of the chest was performed after administration of intravenous contrast. 3-D volumetric and/or maximum intensity projection (MIP) images were subsequently reconstructed for review. IV contrast: 93 mL of Optiray 320. A dose lowering technique was used consistent with the principles of ALARA (as low as reasonably achievable). COMPARISON: Chest x-ray performed earlier today. CT DOSE (mGy.cm): The estimated cumulative dose is 539.26 mGycm. FINDINGS: Radio Television Technical Director topogram: Unremarkable. Pulmonary vasculature: The study is adequate for assessment of the pulmonary vascular tree. No filling defect within the pulmonary arteries to suggest embolus. Main pulmonary artery is not enlarged. No flattening of the interventricular septum. No intracardiac filling defect. Reflux of contrast into the intrahepatic IVC. Remaining chest: On soft tissue windows, subcentimeter hypodense nodule noted in the inferior aspect of the isthmus of the thyroid (series 4 image 233). No axillary, supraclavicular, hilar, or mediastinal lymphadenopathy. Normal aorta. Normal heart size. No pericardial or pleural effusion. Upper abdomen normal. On lung windows, minimal dependent changes likely atelectasis. No other focal nodule or infiltrate. Limited interlobular septal thickening. Airways patent. On bone windows, degenerative changes of the spine. IMPRESSION: 1. No evidence of pulmonary embolus. 2. Mild interlobular septal thickening may suggest an element of congestive change. Electronically signed by: Maikel Arango M.D. 06/25/2018 3:59 PM Dictated Date/Time: 06/25/2018 3:50 PM Laboratory Results 06/25/18 14:10 Red Blood Count 4.68, Mean Corpuscular Volume 90.4, Mean Corpuscular Hemoglobin 31.4, Mean Corpuscular Hemoglobin Concent 34.8, Mean Platelet Volume 9.5, Neutrophils (%) (Auto) 63.9, Lymphocytes (%) (Auto) 29.0, Monocytes (%) (Auto) 5.3, Eosinophils (%) (Auto) 1.4, Basophils (%) (Auto) 0.1, Neutrophils # (Auto) 4.67, Lymphocytes # (Auto) 2.12, Monocytes # (Auto) 0.39, Eosinophils # (Auto) 0.10, Basophils # (Auto) 0.01 06/25/18 14:10 Test 06/25/18 14:10 06/25/18 14:24 White Blood Count 7.31 K/uL (4.8-10.8) Red Blood Count 4.68 M/uL (4.2-5.4) Hemoglobin 14.7 g/dL (12.0-16.0) Hematocrit 42.3 % (37-47) Mean Corpuscular Volume 90.4 fL (80-100) Mean Corpuscular Hemoglobin 31.4 pg (25-34) Mean Corpuscular Hemoglobin Concent 34.8 g/dl (32-36) Platelet Count 225 K/uL (130-400) Mean Platelet Volume 9.5 fL (7.4-10.4) Neutrophils (%) (Auto) 63.9 % Lymphocytes (%) (Auto) 29.0 % Monocytes (%) (Auto) 5.3 % Eosinophils (%) (Auto) 1.4 % Basophils (%) (Auto) 0.1 % Neutrophils # (Auto) 4.67 K/uL (1.4-6.5) Lymphocytes # (Auto) 2.12 K/uL (1.2-3.4) Monocytes # (Auto) 0.39 K/uL (0.11-0.59) Eosinophils # (Auto) 0.10 K/uL (0-0.5) Basophils # (Auto) 0.01 K/uL (0-0.2) RDW Standard Deviation 40.2 fL (36.4-46.3) RDW Coefficient of Variation 12.2 % (11.5-14.5) Immature Granulocyte % (Auto) 0.3 % Immature Granulocyte # (Auto) 0.02 K/uL (0.00-0.02) D-Dimer 1000 ug/L FEU (0-500) Urine Color YELLOW Urine Appearance CLEAR (CLEAR) Urine pH 6.0 (4.5-7.5) Urine Specific [place] 1.004 (1.000-1.030) Urine Protein NEG (NEG) Urine Glucose (UA) NEG (NEG) Urine Ketones NEG (NEG) Urine Occult Blood NEG (NEG) Urine Nitrite NEG (NEG) Urine Bilirubin NEG (NEG) Urine Urobilinogen NEG (NEG) Urine Leukocyte Esterase NEG (NEG) Anion Gap 9.0 mmol/L (3-11) Est Creatinine Clear Calc Drug Dose 60.1 ml/min Estimated GFR () 80.5 Estimated GFR (Non- 69.5 BUN/Creatinine Ratio 20.3 (10-20) Calcium Level 8.8 mg/dl (8.5-10.1) Magnesium Level 2.1 mg/dl (1.8-2.4) Total Bilirubin 0.7 mg/dl (0.2-1) Direct Bilirubin 0.2 mg/dl (0-0.2) Aspartate Amino Transf (AST/SGOT) 19 U/L (15-37) Alanine Aminotransferase (ALT/SGPT) 22 U/L (12-78) Alkaline Phosphatase 87 U/L (45-117) Troponin I < 0.015 ng/ml (0-0.045) Total Protein 7.0 gm/dl (6.4-8.2) Albumin 4.1 gm/dl (3.4-5.0) Thyroid Stimulating Hormone (TSH) 1.300 uIu/ml (0.300-4.500) Bedside Glucose 86 mg/dl (70-90) Laboratory results reviewed by me Medications Administered Medications (Trade) Dose Ordered Sig/[place] Route Start Time Stop Time Status Last Admin Dose Admin Sodium Chloride 1,000 ml @ 999 mls/hr Q1H1M STAT IV 06/25/18 14:09 06/25/18 15:09 DC 06/25/18 14:40 999 MLS/HR ECG Per My Interpretation Indication: SOB/dyspnea Rate (beats per minute): 61 Rhythm: normal sinus Findings: other (normal axis, normal intervals, no ST elevation) Change: no significant change (from 04/17/18) ED Course 1400: The patient was evaluated in room C1A. A complete history and physical exam was performed. 1409: Ordered Sodium Chloride 1000 ml @ 999 mls/hr IV. 1610: I reevaluated the patient. Discussed results and discharge instructions and that she should follow up with her PCP regarding her hypertension: She verbalized understanding and agreement. The patient is ready for discharge. Medical Decision Differential diagnosis: Etiologies such as metabolic, infection, hypo/hyperglycemia, electrolyte abnormalities, cardiac sources, PE, thyroid dysfunction, intracerebral event, toxicologic, neurologic, as well as others were entertained. Patient presents with complaints for the past 2 months of generalized weakness and intermittent dizziness and headaches. Feeling somewhat foggy. No significant head trauma. Denies chest pain. Does endorse a little bit of shortness of breath and for several years little bit right posterior flank pain. States she has gained a little bit of rate. Denies any focal new numbness or tingling. Recently returned from [facility] 2 days ago. No leg swelling. D-dimer sent. Positive so CTA of the chest was completed to exclude PE; negative. Was prior on thyroid medicine but TSH normal here. Under increased stress last 2 months. No concerning findings for CVA. Doubt infection. Electrolytes and thyroid studies were checked. Given a small fluid bolus. 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 Likely more related to chronic arthritic and TMJ pain. Left hand likely overuse syndrome and doubt infection. Patient symptoms may be more related to her increased stressors and recent travel. Recommend continued outpatient follow-up at this point with her regular doctor and also to discuss her blood pressure control. Discussed return criteria. Feels he is stable for outpatient follow-up. Medication Reconcilliation Current Medication List: was personally reviewed by me Blood Pressure Screening Patient's blood pressure: Elevated blood pressure Blood pressure disposition: Referred to PCP Impression Primary Impression: Weakness Additional Impressions: SOB (shortness of breath) HTN (hypertension) Scribe Attestation The scribe's documentation has been prepared under my direction and personally reviewed by me in its entirety. I confirm that the note above accurately reflects all work, treatment, procedures, and medical decision making performed by me. Departure Information Dispostion Home / Self-Care Referrals Chau Rosen M.D. (PCP) Forms HOME CARE DOCUMENTATION FORM, IMPORTANT VISIT INFORMATION Patient Instructions My [facility] Additional Instructions Continue to maintain good hydration. Recommend continued outpatient follow-up with your regular doctor in the next 1 week. Laboratory studies here are reassuring without any evidence or thyroid dysfunction. Follow-up with your regular doctor regarding her blood pressure. Continue to try maintain good sleep and stress management habits. If at any time you have concerns please feel free to return here for reevaluation. Problem Qualifiers Additional Impressions: HTN (hypertension) Hypertension type: unspecified Qualified Codes: I10 - Essential (primary) hypertension
[2018-06-25 16:54] VITALS: BP 160/69; PULSE 65; O2SAT 98
== END 2018-06-25 16:55 | disposition home or self-care (01) ==
LOC: C.EDB 13:43 → C.EDC 16:55
DX: R53.1 Weakness (principal); R06.02 Shortness of breath; I10 Essential (primary) hypertension; Z87.891 Personal history of nicotine dependence